=== PATIENT | female | born 1945 | race African-American/Black ===

== ENCOUNTER 2017-02-20 01:35 | Emergency (ER) | payer OTHER ==
[~2017-02-20] VITALS: Ht 165.1 cm; Wt 74.0 kg
[~2017-02-20 01:35] MED LIST: BENA5TAB3 PO; CLON0.1T14 PO; DILANTIN; DIPH50CA38 PO; ISOS10TA2 PO; ISOS20TA8 PO; PHEN100O PO; PHENOBARB; SERT25TA PO; SIMV20TA6 PO; TRAM50TA PO; [UNRECOGNIZED DRUG - REMARK]
[2017-02-20 03:20] LABS: CHLORIDE 118 mEq/L (98-107); INDEX HEMOLYSI 2 (1-3); INDEX ICTERIC 1 (1-4); INDEX LIPEMIC 1 (1-3)
[2017-02-20 03:28] LABS: ALANINE AMINOTRANSFERASE 14 IU/L (13-61); ALBUMIN 2.5 g/dL (3.4-5.0); ANION GAP 11; CARBON DIOXIDE 24 mEq/L (21-32); UREA NITROGEN BLOOD 5 mg/dL (7-21); eGFR > 60 mL/min (>60)
[2017-02-20 03:41] LABS: PHENYTOIN < 0.4 ug/mL (10-20)
[2017-02-20 03:42] LABS: CALCIUM 5.9 mg/dL (8.5-10.1)
[2017-02-20] MEDS ORDERED: POTASSIUM CHLORIDE 20MEQ TABLET SR PO ONE (03:45)
[2017-02-20] MEDS ORDERED: SODIUM CHLORIDE 0.9% 500 ML IV ONE ×2 (03:45)
[2017-02-20 04:38] LABS: BASOPHILS % 0.4 % (0.0-2.0); EOSINOPHILS % 0.5 % (0.0-5.0); HEMATOCRIT. 33.6 % (36.0-48.0); HEMOGLOBIN. 10.9 g/dL (12.0-16.0); LYMPHOCYTES % 45.1 % (20.0-50.0); MEAN CORPUSCULAR HEMOGLOBIN 27.6 pg (28.0-32.0); MEAN CORPUSCULAR HGB CONC 32.6 g/dL (31.0-37.0); MEAN CORPUSCULAR VOLUME 84.7 fL (81.0-99.0); MEAN PLATELET VOLUME 9.3 fl (7.4-10.4); MONOCYTES % 11.7 % (2.0-8.0); NEUTROPHILS % 42.3 % (40.0-76.0); PLATELET 86 x1000/uL (130-400); RED BLOOD CELL COUNT 3.97 mill/uL (4.2-5.4); RED CELL DISTRIBUTION WIDTH 14.1 % (11.6-14.6)
[2017-02-20 04:40] VITALS: BP 185/107
[2017-02-20 04:44] LABS: INR 1.2; PARTIAL THROMBOPLASTIN TIME 27.2 sec (24.0-34.0); PROTHROMBIN TIME 12.2 sec
== END 2017-02-20 05:47 | disposition left against medical advice (07) ==
LOC: ER 01:40
DX: R56.9 Unspecified convulsions (principal); F41.9 Anxiety disorder, unspecified; I10 Essential (primary) hypertension; I25.2 Old myocardial infarction; F16.10 Hallucinogen abuse, uncomplicated; Z79.899 Other long term (current) drug therapy; Z79.1 Long term (current) use of non-steroidal anti-inflammatories (NSAID)
CPT/HCPCS: 36415; 71010; 80053; 80185; 82330; 85025; 85610; 85730; 93005; 96360; 96361; 99285; J7040

== ENCOUNTER 2024-03-12 22:32 | Emergency (ER) | payer MEDICARE, OTHER ==
[~2024-03-12] VITALS: Ht 172.7 cm; Wt 78.0 kg
[~2024-03-12 22:32] MED LIST changes: -BENA5TAB3 PO; +BENA5TAB40 PO; +SIMV-43 PO; -SIMV20TA6 PO
[2024-03-12 22:43] VITALS: O2SAT 100
[2024-03-12 23:32] LABS: BASOPHILS % 0.3 % (0.0-2.0); EOSINOPHILS % 2.7 % (0.0-5.0); HEMATOCRIT. 36.2 % (36.0-48.0); HEMOGLOBIN. 11.9 g/dL (12.0-16.0); MEAN CORPUSCULAR HEMOGLOBIN 28.5 pg (28.0-32.0); MEAN CORPUSCULAR HGB CONC 32.9 g/dL (31.0-37.0); MEAN CORPUSCULAR VOLUME 86.4 fL (81.0-99.0); MEAN PLATELET VOLUME 9.5 fl (7.4-10.4); MONOCYTES % 11.7 % (2.0-8.0); NEUTROPHILS % 47.3 % (40.0-76.0); PLATELET 188 x1000/uL (130-400); RED BLOOD CELL COUNT 4.19 mill/uL (4.2-5.4); RED CELL DISTRIBUTION WIDTH 14.2 % (11.6-14.6); WHITE BLOOD COUNT 4.8 x1000/uL (4.5-11.0)
[2024-03-12 23:39] LABS: CALCIUM 9.6 mg/dL (8.7-10.4); CARBON DIOXIDE 25 mEq/L (21-32)
[2024-03-12 23:43] LABS: CREATININE 1.2 mg/dL (0.6-1.0)
[2024-03-12 23:44] LABS: GLUCOSE 89 mg/dL (70-105); TROPONIN I HIGH SENSITIVITY 6 ng/L (3.0-34); UREA NITROGEN BLOOD 30 mg/dL (9-23)
[2024-03-13 00:01] LABS: CHLORIDE 106 mEq/L (98-107); POTASSIUM 4.4 mEq/L (3.5-5.1); SODIUM 139 mEq/L (136-145)
[2024-03-13] MEDS: ACETAMINOPHEN 325MG TABLET PO STA (03:26)
[2024-03-13 05:08] VITALS: TEMP 98
[2024-03-13] MEDS: HYDRALAZINE 20MG/ML VIAL IV ONE (08:59)
[2024-03-13] MEDS ORDERED: HYDRALAZINE 20MG/ML VIAL IV NR (09:15)
[2024-03-13 11:56] VITALS: BP 180/90; PULSE 82; RESP 16
== END 2024-03-13 11:57 | disposition left against medical advice (07) ==
LOC: ER 22:32 → EDBEDREQ 03-13 03:57 → EDBEDREQTM 03-13 03:57 → EDBEDREQDT 03-13 03:57 → ER 03-13 11:57
DX: R55 Syncope and collapse (principal); R51.9 Headache, unspecified; F41.9 Anxiety disorder, unspecified; I10 Essential (primary) hypertension; Z79.899 Other long term (current) drug therapy
CPT/HCPCS: 99285; 71045; 80048; 83880; 85025; 84484; 36415; 93005; 96374; 70450; J0360